=== PATIENT | male | born 1980 | race Hispanic/Latino ===

== ENCOUNTER 2022-04-08 03:56 | Emergency (ER) | payer SELFPAY ==
--- NOTE | 2022-04-08 04:45 | EDPHYS ---
Physician Documentation [facility] Name: Chico Escalona Age: 42 yrs Sex: Male : 1980 Arrival Date: 04/08/2022 Time: 04:00 Bed 20 Private MD: MAL Physician Richar Maloney Historical: - Allergies: 04/08 04:07 Amoxicillin; kd3 - Home Meds: 04:07 Lisinopril Oral [Active]; kd3 - PMHx: 04:07 Hypertensive disorder; kd3 - Immunization history:: Adult Immunizations up to date. - Social history:: Smoking status: Patient denies any tobacco usage or history of. Vital Signs: 04:14 BP 156 / 105; Pulse 63; Resp 18; Temp 98.9; Pulse Ox 100% ; kd3 05:01 BP 143 / 102; Pulse 69; Resp 18; Pulse Ox 97% on R/A; 5 MDM: 04:44 Patient medically screened. kdr Administered Medications: 04:50 Drug: predniSONE 60 mg Route: PO; sm5 05:02 Follow up: Response: No adverse reaction 5 04:50 Drug: Benadryl (diphenhydrAMINE) 25 mg Route: PO; sm5 05:02 Follow up: Response: No adverse reaction 5 04:50 Drug: Lopressor (metoprolol TARTRATE) 50 mg Route: PO; sm5 05:02 Follow up: Response: No adverse reaction 5 Disposition Summary: 04/08/22 04:44 Discharge Ordered Location: Home kdr Problem: new kdr Symptoms: have improved kdr Condition: Stable kdr Diagnosis - Acute Allergic Reaction - CELIO Inhibitor kdr Followup: kdr - With: Private Physician - When: 2 - 3 days - Reason: If symptoms return, Further diagnostic work-up, Recheck today's complaints, Continuance of care, Re-evaluation by your physician Discharge Instructions: - Discharge Summary Sheet kdr - Hypertension, Adult, [id number] kdr - Allergies, Adult, [id number] kdr Forms: - Medication Reconciliation Form kdr - Thank You Letter kdr - Work release form 5 Prescriptions: - Lopressor 50 mg Oral Tablet - take 1 tablet by ORAL route every 12 hours; 30 tablet; Refills: 0, Product kdr Selection Permitted Signatures: Rittger, Richar, Kassandra Kumar MD, RN RN kd3 Martine Simon, RN RN sm5
--- NOTE | 2022-04-08 04:45 | ER ---
Nurse's Notes [facility] Name: Chico Escalona Age: 42 yrs Sex: Male : 1980 Arrival Date: 04/08/2022 Time: 04:00 Bed 20 Private MD: Diagnosis: Acute Allergic Reaction - CELIO Inhibitor Presentation: 04/08 04:05 Chief complaint: Patient states: my lip and my face is swollen. I don't think I ate kd3 anything weird and I don't think I got stung by anything. it itches a little and burn and it hurts a little. Coronavirus screen: Vaccine status: Patient reports being unvaccinated. Ebola Screen: No symptoms or risks identified at this time. Initial Sepsis Screen: Does the patient meet any 2 criteria? No. Patient's initial sepsis screen is negative. Does the patient have a suspected source of infection? No. Patient's initial sepsis screen is negative. Risk Assessment: Do you want to hurt yourself or someone else? Patient reports no desire to harm self or others. Onset of symptoms was April 07, 2022. 04:05 Method Of Arrival: Ambulatory kd3 04:05 Acuity: YASMINE 3 kd3 Triage Assessment: 04:07 General: Appears in no apparent distress. Behavior is calm, cooperative. Pain: kd3 Complains of pain in facial swelling. Historical: - Allergies: 04:07 Amoxicillin; kd3 - Home Meds: 04:07 Lisinopril Oral [Active]; kd3 - PMHx: 04:07 Hypertensive disorder; kd3 - Immunization history:: Adult Immunizations up to date. - Social history:: Smoking status: Patient denies any tobacco usage or history of. Screenin:24 Abuse screen: Denies threats or abuse. Denies injuries from another. Nutritional sm5 screening: No deficits noted. Tuberculosis screening: No symptoms or risk factors identified. Fall Risk None identified. Assessment: 04:21 General: Appears in no apparent distress. Behavior is cooperative. General: swelling to sm5 lip and forehead. Neuro: Level of Consciousness is awake, alert, obeys commands, Oriented to person, place, time, situation. Cardiovascular: Capillary refill < 3 seconds Patient's skin is warm and dry. Cardiovascular:. Respiratory: Airway is patent Trachea midline Respiratory effort is even, unlabored. Vital Signs: 04:14 BP 156 / 105; Pulse 63; Resp 18; Temp 98.9; Pulse Ox 100% ; kd3 05:01 BP 143 / 102; Pulse 69; Resp 18; Pulse Ox 97% on R/A; 5 ED Course: 04:00 Patient arrived in ED. bp1 04:07 Triage completed. kd3 04:07 Arm band placed on left wrist. kd3 04:09 Richar Maloney MD is Attending Physician. kdr 04:09 Martine Simon, JAZZ is Primary Nurse. 5 04:23 Inserted saline lock: 20 gauge in right antecubital area, using aseptic technique. sm5 Blood collected. 04:24 Patient has correct armband on for positive identification. Bed in low position. Call sm5 light in reach. Side rails up X2. 05:02 No provider procedures requiring assistance completed. IV discontinued, intact, sm5 bleeding controlled, No redness/swelling at site. Pressure dressing applied. Administered Medications: 04:50 Drug: predniSONE 60 mg Route: PO; sm5 05:02 Follow up: Response: No adverse reaction 5 04:50 Drug: Benadryl (diphenhydrAMINE) 25 mg Route: PO; sm5 05:02 Follow up: Response: No adverse reaction sm5 04:50 Drug: Lopressor (metoprolol TARTRATE) 50 mg Route: PO; sm5 05:02 Follow up: Response: No adverse reaction 5 Medication: 04:24 VIS not applicable for this client. 5 Outcome: 04:44 Discharge ordered by . kdr 05:02 Discharged to home ambulatory, with significant other. 5 05:02 Condition: stable 05:02 Discharge instructions given to patient, significant other, Instructed on discharge instructions, follow up and referral plans. medication usage, Demonstrated understanding of instructions, follow-up care, medications, Prescriptions given X 1. 05:03 Patient left the ED. 5 Signatures: Richar Maloney MD MD [facility] Lucia Cardenas bp1 Kassandra Cerrato RN RN 3 Martine Simon RN RN 5
[2022-04-08] MEDS ORDERED: DIPHENHYDRAMINE 25 MG TAB/CAP ONE (04:49)
[2022-04-08] MEDS ORDERED: predniSONE 20 MG TAB ONE (04:49)
[2022-04-08] MEDS ORDERED: METOPROLOL TAR 50 MG TAB ONE ×2 (04:53→04:55)
[2022-04-08 05:18] VITALS: TEMP 98.9
[2022-04-08 05:20] VITALS: BP 143/102; O2SAT 97
== END 2022-04-08 05:03 | disposition home or self-care (01) ==
LOC: ER 03:56
DX: R22.9 Localized swelling, mass and lump, unspecified (principal); L29.9 Pruritus, unspecified; Z88.1 Allergy status to other antibiotic agents; Z88.8 Allergy status to other drugs, medicaments and biological substances; I10 Essential (primary) hypertension
CPT/HCPCS: J7512

== ENCOUNTER 2022-04-10 02:52 | Emergency (ER) | payer SELFPAY ==
--- NOTE | 2022-04-10 03:14 | ER ---
Nurse's Notes [facility] Name: Chico Escalona Age: 42 yrs Sex: Male : 1980 Arrival Date: 04/10/2022 Time: 02:53 Bed 18 Private MD: Diagnosis: Allergic reaction Presentation: 04/10 03:06 Chief complaint: Patient states: i think my tongue, throat and nose are swelling. i was lg3 here the other night for the same thing. this has happened every time I eat ice cream with peanuts on top. Coronavirus screen: Client denies travel out of the [place] in the last 14 days. At this time, the client does not indicate any symptoms associated with coronavirus-19. Ebola Screen: No symptoms or risks identified at this time. Initial Sepsis Screen: Does the patient meet any 2 criteria? No. Patient's initial sepsis screen is negative. Does the patient have a suspected source of infection? No. Patient's initial sepsis screen is negative. Risk Assessment: Do you want to hurt yourself or someone else? Patient reports no desire to harm self or others. Onset of symptoms was April 10, 2022. 03:06 Method Of Arrival: Ambulatory lg3 03:06 Acuity: YASMINE 4 lg3 Triage Assessment: 03:09 General: Appears in no apparent distress. comfortable, Behavior is cooperative, lg3 anxious. Pain: Denies pain. EENT: No deficits noted. No signs and/or symptoms were reported regarding the EENT system. Nares are clear bilaterally Oral mucosa is moist. Throat is clear. Neuro: No deficits noted. Level of Consciousness is awake, alert, obeys commands, Oriented to person, place, time, situation. Cardiovascular: No deficits noted. Denies chest pain, shortness of breath, Capillary refill < 3 seconds Clubbing of nail beds is absent JVD is absent Patient's skin is warm and dry. Respiratory: No deficits noted. Airway is patent Trachea midline Respiratory effort is even, unlabored, Respiratory pattern is regular, symmetrical, Breath sounds are clear bilaterally. GI: No deficits noted. No signs and/or symptoms were reported involving the gastrointestinal system. Abdomen is round non-distended. : No deficits noted. No signs and/or symptoms were reported regarding the genitourinary system. Derm: No deficits noted. No signs and/or symptoms reported regarding the dermatologic system. Skin is intact, is healthy with good turgor, Skin is dry, Skin temperature is warm. Musculoskeletal: No deficits noted. No signs and/or symptoms reported regarding the musculoskeletal system. Circulation, motion, and sensation intact. Range of motion: intact in all extremities. Historical: - Allergies: 03:09 Amoxicillin; lg3 03:09 Lisinopril; lg3 - Home Meds: 03:09 lisinopril Oral [Active]; Lopressor Oral [Active]; lg3 - PMHx: 03:09 Hypertensive disorder; lg3 - PSHx: 03:09 None; lg3 - Immunization history:: Adult Immunizations up to date, Client reports having NOT received the Covid vaccine. - Social history:: Smoking status: Patient denies any tobacco usage or history of. Patient uses alcohol, on a daily basis. admits to "couple of beers" a day. Patient/guardian denies using street drugs. Screenin:11 Abuse screen: Denies threats or abuse. Denies injuries from another. Nutritional lg3 screening: No deficits noted. Tuberculosis screening: No symptoms or risk factors identified. Fall Risk None identified. Assessment: 03:11 General: see triage assessment. lg3 Vital Signs: 03:06 BP 156 / 109; Pulse 89; Resp 17 S; Temp 98.2(O); Pulse Ox 100% on R/A; Weight 86.18 kg lg3 (R); Height 5 ft. 10 in. (177.80 cm) (R); 03:06 Body Mass Index 27.26 (86.18 kg, 177.80 cm) lg3 ED Course: 02:53 Patient arrived in ED. bp1 02:57 Juliette Rabago, RN is Primary Nurse. lg3 02:58 Phillip Edmonds MD is Attending Physician. sp3 03:09 Triage completed. lg3 03:09 Arm band placed on right wrist. lg3 03:11 Patient has correct armband on for positive identification. Bed in low position. Call lg3 light in reach. Side rails up X 1. Client placed on continuous cardiac and pulse oximetry monitoring. NIBP monitoring applied. Door closed. Noise minimized. Warm blanket given. Family accompanied patient. 03:12 Jarocho Germain MD is Referral Physician. sp3 03:30 Inserted saline lock: 22 gauge in right antecubital area, using aseptic technique. lg3 03:32 No provider procedures requiring assistance completed. IV discontinued, intact, lg3 bleeding controlled, No redness/swelling at site. Pressure dressing applied. Administered Medications: 03:31 Drug: Benadryl (diphenhydrAMINE) 25 mg Route: IVP; Site: right antecubital; lg3 03:32 Follow up: Response: No adverse reaction lg3 03:31 Drug: SOLU-Medrol (methylPrednisoLONE) 125 mg Route: IVP; Site: right antecubital; lg3 03:32 Follow up: Response: No adverse reaction lg3 Medication: 03:33 VIS not applicable for this client. lg3 Outcome: 03:13 Discharge ordered by . sp3 03:32 Discharged to home ambulatory, with family. lg3 03:32 Condition: stable 03:32 Discharge instructions given to patient, significant other, Instructed on discharge instructions, follow up and referral plans. medication usage, Demonstrated understanding of instructions, follow-up care, medications, Prescriptions given X 1. 03:33 Patient left the ED. lg3 Signatures: Juliette Rabago, RN RN lg3 Lucia Cardenas Setul, MD MD sp3
--- NOTE | 2022-04-10 03:14 | EDPHYS ---
Physician Documentation [facility] Name: Chico Escalona Age: 42 yrs Sex: Male : 1980 Arrival Date: 04/10/2022 Time: 02:53 Bed 18 Private MD: ED Physician Phillip Edmonds HPI: 04/10 03:09 This 42 yrs old Male presents to ER via Ambulatory with complaints of Facial sp3 Swelling, Throat Swelling. 03:09 2-year-old male with a history of hypertension who was recently seen for angioedema and sp3 was put off the lisinopril and now returns today for throat swelling and facial swelling (but no angioedema of the lips) after eating ice cream with nuts on it. Patient has not had allergy testing in the past. Patient does not complain of shortness of breath and the throat swelling is mild and has been stable. Denies any other medications, headache, chest pain, shortness of breath, nausea, vomiting, diarrhea, skin rash, or any other ROS at this time.. Historical: - Allergies: 03:09 Amoxicillin; lg3 03:09 Lisinopril; lg3 - Home Meds: 03:09 lisinopril Oral [Active]; Lopressor Oral [Active]; lg3 - PMHx: 03:09 Hypertensive disorder; lg3 - PSHx: 03:09 None; lg3 - Immunization history:: Adult Immunizations up to date, Client reports having NOT received the Covid vaccine. - Social history:: Smoking status: Patient denies any tobacco usage or history of. Patient uses alcohol, on a daily basis. admits to "couple of beers" a day. Patient/guardian denies using street drugs. ROS: 03:10 Constitutional: Negative for fever, chills, and weight loss, Eyes: Negative for injury, sp3 pain, redness, and discharge, Neck: Negative for injury, pain, and swelling, Cardiovascular: Negative for chest pain, palpitations, and edema, Respiratory: Negative for shortness of breath, cough, wheezing, and pleuritic chest pain, Abdomen/GI: Negative for abdominal pain, nausea, vomiting, diarrhea, and constipation, Back: Negative for injury and pain, Skin: Negative for injury, rash, and discoloration, Neuro: Negative for headache, weakness, numbness, tingling, and seizure, Psych: Negative for depression, anxiety, suicide ideation, homicidal ideation, and hallucinations, Endocrine: Negative for neck swelling, polydipsia, polyuria, polyphagia, and marked weight changes. 03:10 All other systems are negative. Exam: 03:11 Constitutional: This is a well developed, well nourished patient who is awake, alert, sp3 and in no acute distress. Eyes: Pupils equal round and reactive to light, extra-ocular motions intact. Lids and lashes normal. Conjunctiva and sclera are non-icteric and not injected. Cornea within normal limits. Periorbital areas with no swelling, redness, or edema. Neck: Trachea midline, no thyromegaly or masses palpated, and no cervical lymphadenopathy. Supple, full range of motion without nuchal rigidity, or vertebral point tenderness. No Meningismus. Chest/axilla: Normal chest wall appearance and motion. Nontender with no deformity. No lesions are appreciated. Cardiovascular: Regular rate and rhythm with a normal S1 and S2. No gallops, murmurs, or rubs. Normal PMI, no JVD. No pulse deficits. Respiratory: Lungs have equal breath sounds bilaterally, clear to auscultation and percussion. No rales, rhonchi or wheezes noted. No increased work of breathing, no retractions or nasal flaring. Abdomen/GI: Soft, non-tender, with normal bowel sounds. No distension or tympany. No guarding or rebound. No evidence of tenderness throughout. Skin: Warm, dry with normal turgor. Normal color with no rashes, no lesions, and no evidence of cellulitis. 03:11 Head/face: Mild facial swelling noted. Oropharynx not materially swollen and airway is patent and intact.. Vital Signs: 03:06 BP 156 / 109; Pulse 89; Resp 17 S; Temp 98.2(O); Pulse Ox 100% on R/A; Weight 86.18 kg lg3 (R); Height 5 ft. 10 in. (177.80 cm) (R); 03:06 Body Mass Index 27.26 (86.18 kg, 177.80 cm) lg3 MDM: 03:05 Patient medically screened. sp3 03:12 Data reviewed: vital signs, nurses notes. ED course: We will administer Solu-Medrol and sp3 Benadryl IV and discharge patient on p.o. prednisone. I recommended to follow-up with an microwave supervisor for further allergy testing. Patient is return here at any time if symptoms are worse.. 04/10 03:09 Order name: IV Saline Lock; Complete Time: 03:30 sp3 Administered Medications: 03:31 Drug: Benadryl (diphenhydrAMINE) 25 mg Route: IVP; Site: right antecubital; lg3 03:32 Follow up: Response: No adverse reaction lg3 03:31 Drug: SOLU-Medrol (methylPrednisoLONE) 125 mg Route: IVP; Site: right antecubital; lg3 03:32 Follow up: Response: No adverse reaction lg3 Disposition Summary: 04/10/22 03:13 Discharge Ordered Location: Home sp3 Condition: Stable sp3 Diagnosis - Allergic reaction sp3 Followup: sp3 - With: Jarocho Germain MD - When: Upon discharge from the Emergency Department - Reason: Further diagnostic work-up Discharge Instructions: - Discharge Summary Sheet sp3 - Food Allergy sp3 Forms: - Medication Reconciliation Form sp3 - Thank You Letter sp3 - Antibiotic Education sp3 - Prescription Opioid Use sp3 - Work release form vc1 Prescriptions: - Prednisone 20 mg Oral Tablet - take 2 tablets by ORAL route once daily for 5 days; 10 tablet; Refills: 0, sp3 Product Selection Permitted Signatures: Juliette Rabago, RN RN lg3 Phillip Edmonds MD MD sp3
[2022-04-10] MEDS ORDERED: METHYLPREDNISOLONE 125 MG INJ ONE (03:20)
[2022-04-10] MEDS ORDERED: DIPHENHYDRAMINE 50 MG/ML VIAL ONE (03:21)
[2022-04-10 03:56] VITALS: BP 156/109; TEMP 98.2; O2SAT 100
== END 2022-04-10 03:33 | disposition home or self-care (01) ==
LOC: ER 02:52
DX: R22.9 Localized swelling, mass and lump, unspecified (principal); I10 Essential (primary) hypertension; Z88.1 Allergy status to other antibiotic agents; Z88.8 Allergy status to other drugs, medicaments and biological substances
CPT/HCPCS: 96374; 96375; 99283; J1200; J2930